=== PATIENT | female | born 1945 | race Caucasian/White ===

== ENCOUNTER 2019-04-16 08:53 | Emergency (ER) | payer MEDICARE, BC ==
[~2019-04-16] VITALS: Ht 157.5 cm; Wt 55.8 kg
[~2019-04-16 08:53] MED LIST: ACETAMINOPHEN-1 EAC1 PO; CIPRO500 MG PO; FLAGYL500 MG PO; HYDROCODON-ACE1 EA10 PO; IPRATROPIUM BRO30 ML NAS; METOPROLOL SUCC50 MG PO; OMEPRAZOLE20 MG PO; ZOFRAN ODT4 MG SL; ZOLPIDEM TARTRAT5 MG PO
--- OUTSIDE RECORDS SUMMARY | 2019-04-16 08:56 | XMS ---
PreManage Notification: RUTHIE NEVAREZ [employer] Events No recent Security Events currently on file CRITERIA MET - PDM - [facility] - 2 Visits in 30 Days CARE PROVIDERS There are no care providers on record at this time. Kailee has no Care Guidelines for this patient. [place] VISIT COUNT (12 MO.) [address] [facility] 1 ANGELIKA Smiley TOTAL 2 NOTE: Visits indicate total known visits. ED/C VISIT TRACKING (12 MO.) 04/16/2019 08:53 [facility]IKA [facility] TYPE: Emergency COMPLAINT: - [facility] DIAGNOSES: - Unspecified abdominal pain - Diarrhea, unspecified - Vomiting, unspecified - Sepsis, unspecified organism - ABD PN/ N/V/D 04/05/2019 12:35 [facility] TYPE: Urgent Care DIAGNOSES: - Abdominal Pain - Procedure and treatment not carried out due to patient leaving prior to being seen by health care provider INPATIENT VISIT TRACKING (12 MO.) [facility] DIAGNOSES: - Cardiomyopathy, unspecified - Low back pain - Abnormal levels of other serum enzymes - Severe sepsis without septic shock - Clostridium perfringens [C. perfringens] as the cause of diseases classified elsewhere - Headache - Vomiting, unspecified - Diarrhea, unspecified - Rectal abscess - Bacteremia - Essential (primary) hypertension - Nonrheumatic aortic valve disorder, unspecified - Other chronic pain - Sepsis, unspecified organism - Unspecified abdominal pain - Abnormal findings on diagnostic imaging of heart and coronary circulation [email or web address]
[2019-04-16] MEDS ORDERED: ASPIR 8181 MG PO (09:05)
[2019-04-16] MEDS ORDERED: ATORVASTATIN CA40 MG PO (09:05)
[2019-04-16] MEDS ORDERED: CALCIUM500 MG PO (09:06)
[2019-04-16] MEDS ORDERED: VITAMIN D1000 UNI1 PO (09:07)
[2019-04-16] MEDS ORDERED: LISINOPRIL2.5 MG PO (09:08)
--- NOTE | 2019-04-16 14:25 | EKG ---
[facility] [address] [place], [place] [address] Signed Sinus tachycardia Possible Left atrial enlargement Anteroseptal infarct , age undetermined Abnormal ECG No previous ECGs available Confirmed by SARINA RÍOS MD ([id number]) on 04/16/2019 2:24:56 PM Electronically Signed By: SARINA RÍOS MD 04/16/19 1425 PATIENT NAME: RUTHIE NEVAREZ Electrocardiogram DATE OF : 47 PHYSICIAN: SARINA RÍOS MD REPORT #: [id number] REPORT IS CONFIDENTIAL AND NOT TO BE RELEASED WITHOUT AUTHORIZATION
== END 2019-04-16 16:40 | disposition short-term general hospital (02) ==
LOC: ED 08:53
DX: I50.9 Heart failure, unspecified (principal); I35.0 Nonrheumatic aortic (valve) stenosis; K61.1 Rectal abscess; I10 Essential (primary) hypertension; Z85.42 Personal history of malignant neoplasm of other parts of uterus; Z90.710 Acquired absence of both cervix and uterus; Z88.0 Allergy status to penicillin; Z79.899 Other long term (current) drug therapy; Z79.82 Long term (current) use of aspirin
CPT/HCPCS: 71045; 80053; 81001; 83605; 83880; 84484; 85025; 93005; 93010; 96374; 96375; 99291; J1335; J1940; J2997